=== PATIENT | male | born 2000 | race Caucasian/White ===

== ENCOUNTER 2024-07-15 16:48 | Emergency (ER) | payer OTHER ==
[~2024-07-15] VITALS: Ht 188 cm; Wt 101.0 kg
[2024-07-15] MEDS: LIDOCAINE 2% MDV 20ML VIAL SC ONE (18:23)
[2024-07-15] MEDS ORDERED: AMOX875T2 PO (18:57)
[2024-07-15 19:02] VITALS: BP 126/71; TEMP 98.2; O2SAT 96
[2024-07-15] MEDS: NEOSPORIN OINT 0.9 GM PKT TOP ONE (19:10)
[2024-07-15] MEDS: AUGMENTIN 875 MG TAB PO ONE (19:10)
== END 2024-07-15 19:28 | disposition home or self-care (01) ==
LOC: M ED 16:48
DX: S61.011A Laceration without foreign body of right thumb without damage to nail, initial encounter (principal); W54.0XXA Bitten by dog, initial encounter; Y92.009 Unspecified place in unspecified non-institutional (private) residence as the place of occurrence of the external cause; Y93.89 Activity, other specified; Y99.9 Unspecified external cause status; Z79.2 Long term (current) use of antibiotics